=== PATIENT | female | born 1990 | race Caucasian/White ===

== ENCOUNTER 2022-07-01 15:54 | Emergency (ER) | payer OTHER ==
[~2022-07-01] VITALS: Ht 157.5 cm; Wt 50.0 kg
[2022-07-01 16:10] VITALS: BP 132/68
[2022-07-01] MEDS ORDERED: ACETAMINOPHEN 325MG TABLET PO ONE (21:30)
[2022-07-01] MEDS ORDERED: IBUP-2028 MT (22:37)
[2022-07-01] MEDS ORDERED: AMOX1TAB16 MT (22:37)
== END 2022-07-01 22:49 | disposition home or self-care (01) ==
LOC: ER 16:08
DX: J02.9 Acute pharyngitis, unspecified (principal); R50.9 Fever, unspecified
CPT/HCPCS: 81025; 87070; 87430; 99283